=== PATIENT | male | born 1995 | race Caucasian/White ===

== ENCOUNTER 2017-08-15 16:36 | Emergency (ER) | payer BC ==
--- NOTE | 2017-08-15 18:25 | UC ---
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 Has had a respiratory illness with cough and disrupted sleep for the past 2 weeks. Initial sore throat, now resolved, mild ear congestion. No fever, overall improving. Has not been using decongestants and has not used adderall in the past 3 weeks. - History of Current Complaint Chief Complaint: UCGeneralIllness Stated Complaint: COUGH,FATIGUE Time Seen by Provider: 08/15/17 17:22 Hx Obtained From: Patient Onset/Duration: Gradual Onset, Lasting Days Timing: Intermittent Episodes Lasting: - minutes Severity Initially: Moderate Severity Currently: None Character: Fast Aggravating Factor(s): Exertion - occurs only with swimming. Alleviating Factor(s): Rest Associated Signs & Symptoms: Positive: Shortness of Breath - Risk Factors Cardiac: Family History - PGF of [place] in his 30's Pulmonary Embolism: Negative Atrial Fibrillation: Negative - Allergy/Home Medications Allergies/Adverse Reactions: Allergies Allergy/AdvReac Type Severity Reaction Status Date / Time Amoxicillin AdvReac GI symptoms Verified 08/15/17 16:51 Home Medications: Home Medications Amphetamine-Dextroamphetamine [Adderall Xr 30 mg] 1 cap PO DAILY 08/15/17 [ History Confirmed 08/15/17] Minocycline HCl 100 mg PO DAILY 08/15/17 [History Confirmed 08/15/17] PMH/Surg Hx/FS Hx/Imm Hx Previously Healthy: Yes Respiratory History: Asthma - exercise induced; uses symbicort. No regular or recent use of albuterol. - Surgical History Surgical History: Yes Surgery Procedure, Year, and Place: testicular 5th grade - Family History Known Family History: Positive: Cardiac Disease, Hypertension - maternal grandmother, Diabetes - Social History Occupation: Student Lives: Dormitory/Roommates Alcohol Use: Rare Substance Use Type: None Smoking Status (MU): Never Smoked Tobacco Have You Smoked in the Last Year: No Review of Systems ENT: Sore Throat, Ear Ache Respiratory: Cough - causing disrupted sleep. Cardiovascular: Palpitations - rapid heart rate, subsides with rest. Is Patient Immunocompromised?: No All Other Systems Reviewed And Are Negative: Yes Physical Exam Triage Information Reviewed: Yes Appearance: Well-Appearing, No Pain Distress, Well-Nourished Vital Signs: Initial Vital Signs Temp 98.4 F 08/15/17 16:42 Pulse 62 08/15/17 16:42 Resp 16 08/15/17 16:42 BP 134/76 08/15/17 16:42 Pulse Ox 100 08/15/17 16:42 Diagnostics - EKG Cardiac Rate: NL Cardiac Rhythm: Sinus: Normal Ectopy: None ST Segment: Normal Palpitations Course/Dx - Course Course Of Treatment: rest. Monitor symptoms, follow up with PMD over vacation if symptoms persist. - Differential Dx/Diagnosis Provider Diagnoses: tachycardia with exertion, viral URI Discharge - Discharge Plan Condition: Stable Disposition: HOME Patient Education Materials: Tachycardia (ED) Forms: *Physical Education Release Referrals: Non Staff,Doctor [Medical Doctor] - Additional Instructions: The cause of the rapid heart rate is from exercising actively during the course of a viral illness. I advise off practice tomorrow, increase rest. Gradually increase aerobic exercise next week, and assess your heart rate. Follow up with your PMD if you continue to have a high heart rate with exertion. Your EKG is normal.
[2017-08-15 18:28] VITALS: BP 134/76
== END 2017-08-15 18:41 | disposition home or self-care (01) ==
LOC: UCCORT 16:36
DX: R00.0 Tachycardia, unspecified (principal); J06.9 Acute upper respiratory infection, unspecified; J45.990 Exercise induced bronchospasm; Z88.1 Allergy status to other antibiotic agents; R94.31 Abnormal electrocardiogram [ECG] [EKG]
CPT/HCPCS: 93005; 99211; G0463

== ENCOUNTER 2018-11-11 14:30 | Emergency (ER) | payer BC ==
[2018-11-11 15:00] VITALS: BP 135/65
--- NOTE | 2018-11-11 15:40 | UC ---
UC General HPI - HPI Summary HPI Summary: pt is c/o a sore throat with headache and plugged ears x 3 days. no fever. - History of Current Complaint Chief Complaint: UCGeneralIllness Stated Complaint: SORE THROAT, HEADACHE, EARS Time Seen by Provider: 11/11/18 15:32 Hx Obtained From: Patient Onset/Duration: Gradual Onset Timing: Constant Pain Intensity: 6 Aggravating: nothing Associated Signs & Symptoms: Positive: Headache. Negative: Cough, Chest Pain, Fever, SOB - Allergy/Home Medications Allergies/Adverse Reactions: Allergies Allergy/AdvReac Type Severity Reaction Status Date / Time amoxicillin Allergy GI Upset Verified 11/11/18 15:01 Home Medications: Home Medications Acetaminophen TAB* [Tylenol TAB*] 650 mg PO Q4H PRN 11/11/18 [History Confirmed 11/11/18] PMH/Surg Hx/FS Hx/Imm Hx Previously Healthy: Yes - Surgical History Surgical History: Yes Surgery Procedure, Year, and Place: testicular 5th grade - Family History Known Family History: Positive: Cardiac Disease, Hypertension - maternal grandmother, Diabetes - Social History Alcohol Use: Weekly Substance Use Type: None Smoking Status (MU): Never Smoked Tobacco Have You Smoked in the Last Year: No - Immunization History Vaccination Up to Date: Yes Review of Systems All Other Systems Reviewed And Are Negative: Yes Constitutional: Negative: Fever, Chills ENT: Positive: Sore Throat, Ear Ache Musculoskeletal: Positive: Myalgia Neurological: Positive: Headache Is Patient Immunocompromised?: No Physical Exam Triage Information Reviewed: Yes Appearance: Well-Appearing Vital Signs: Initial Vital Signs Temp 98.9 F 11/11/18 14:52 Pulse 61 11/11/18 14:52 Resp 16 11/11/18 14:52 BP 135/65 11/11/18 14:52 Pulse Ox 100 11/11/18 14:52 Vital Signs Reviewed: Yes Eyes: Positive: Conjunctiva Clear ENT: Positive: Pharyngeal erythema - slight, TMs normal - canals clear. no auricular adenoapthy ort mastoid tenderness. Negative: Nasal congestion, Nasal drainage Neck: Positive: Supple, Nontender, No Lymphadenopathy. Negative: Nuchal Rigidity Respiratory: Positive: Lungs clear, Normal breath sounds, No respiratory distress Cardiovascular: Positive: RRR, No Murmur Abdomen Description: Positive: Nontender, No Organomegaly, Soft Bowel Sounds: Positive: Present Musculoskeletal: Positive: ROM Intact Neurological: Positive: Alert Psychological: Positive: Age Appropriate Behavior Skin Exam: Normal Skin: Negative: Rashes Course/Dx - Course Course Of Treatment: rapid strep=neg - Differential Dx - Multi-Symptom Differential Diagnoses: Other - URI, OM, OE, STREP THROAT, VIRASL SYNDROM - Diagnoses Provider Diagnosis: URI (upper respiratory infection) Discharge - Sign-Out/Discharge Documenting (check all that apply): Patient Departure All imaging exams completed and their final reports reviewed: No Studies - Discharge Plan Condition: Stable Disposition: HOME Patient Education Materials: Upper Respiratory Infection (DC) Referrals: CAMERON PRATT [Z.BUSINESS, APPLICATION, OTHER] - Additional Instructions: FOLLOW UP IF NOT BETTER IN 5 DAYS OR SOONER IF WORSE. - Billing Disposition and Condition Condition: STABLE Disposition: Home - Attestation Statements Provider Attestation: Per institutional requirements, I have reviewed the chart, however, I was not consulted specifically or made aware of this patient by the midlevel provider. I did not personally evaluate, interact with , or disposition this patient.
== END 2018-11-11 15:51 | disposition home or self-care (01) ==
LOC: UCCORT 14:30
DX: J06.9 Acute upper respiratory infection, unspecified (principal); Z88.0 Allergy status to penicillin
CPT/HCPCS: 87651; 99211; G0463